=== PATIENT | female | born 1980 | race Hispanic/Latino ===

== ENCOUNTER 2017-01-18 22:08 | Observation (INO) | payer MEDICAID, MEDICARE ==
[2017-01-18 23:29] LABS: BASO # 0.1 K/uL (0.0-0.2); BASO % 0.7 % (0.0-2.0); EOS # 0.2 K/uL (0.0-0.7); EOS % 2.8 % (0.0-4.0); HEMATOCRIT 37.8 % (34.0-47.0); LYMPH # 2.4 K/uL (1.0-4.3); LYMPH % 32.4 % (20.0-40.0); MEAN CELL VOLUME 96.3 fL (81.0-99.0); MEAN CORPUSCULAR HEMOGLOBIN 33.3 pg (27.0-31.0); MEAN CORPUSCULAR HGB CONC 34.6 g/dL (33.0-37.0); MEAN PLATELET VOLUME 7.9 fL (7.2-11.7); MONO # 0.5 K/uL (0.0-0.8); MONO % 6.8 % (0.0-10.0); NRBC % 0.2 % (0.0-2.0); RED CELL DISTRIBUTION WIDTH 12.1 % (11.5-14.5); WHITE BLOOD COUNT 7.3 K/uL (4.8-10.8)
[2017-01-18 23:37] LABS: CHLORIDE 103 mmol/L (98-107); POTASSIUM 3.4 mmol/L (3.6-5.2); SODIUM 140 mmol/L (132-148)
[2017-01-18 23:39] LABS: AST/SGOT 19 U/L (14-36); BILIRUBIN,TOTAL 0.9 mg/dL (0.2-1.3); CARBON DIOXIDE 23 mmol/L (22-30); GFR AFRICAN-AMERICAN > 60
[2017-01-18 23:40] LABS: ALB/GLOB RATIO 1.7 (1.0-2.1); ALKALINE PHOSPHATASE 48 U/L (38-126); ALT/SGPT 45 U/L (9-52); BLOOD UREA NITROGEN 14 mg/dL (7-17); CALCIUM 9.1 mg/dl (8.6-10.4); GLUCOSE,RANDOM 96 mg/dL (65-105); TOTAL PROTEIN 6.9 g/dL (6.3-8.3)
[2017-01-18 23:41] LABS: ALCOHOL SERUM < 10 mg/dl (0-10)
--- NOTE | 2017-01-19 00:14 | C.PDOC ---
Time Seen by Provider: 01/18/17 22:37 Chief Complaint (Nursing): Psychiatric Evaluation History Per: Patient, EMS History/Exam Limitations: clinical condition Onset/Duration Of Symptoms: Unknown Current Symptoms Are (Timing): Still Present Severity: Severe Associated Symptoms: Agitation, Paranoia, Other (Psychosis) Additional History Per: Prior Records Past Medical History Reviewed: Historical Data, Nursing Documentation, Vital Signs Vital Signs: Last Vital Signs Temp 98.5 F 01/18/17 22:10 Pulse 85 01/18/17 22:10 Resp 18 01/18/17 22:10 BP 135/85 01/18/17 22:10 Pulse Ox 97 01/19/17 00:15 - Medical History PMH: Schizophrenia (?) Family History: States: Unknown Family Hx - Social History Hx Alcohol Use: No Hx Substance Use: No - Immunization History Hx Tetanus Toxoid Vaccination: No Hx Influenza Vaccination: No Hx Pneumococcal Vaccination: No Review Of Systems Review Of Systems: ROS cannot be obtained secondary to pt's inabilty to answer questions. Physical Exam - Physical Exam Appears: Unkempt, Agitated Skin: Normal Color, Warm, Dry, No Rash Head: Atraumatic, Normacephalic Eye(s): bilateral: PERRL, EOMI Neck: Normal ROM, Supple Cardiovascular: Rhythm Regular Respiratory: Normal Breath Sounds, No Accessory Muscle Use Gastrointestinal/Abdominal: Soft, No Tenderness Extremity: Normal ROM Neurological/Psych: Inappropriate Response To Command, Other (Moving all extremities) ED Course And Treatment - Laboratory Results Result Diagrams: 01/18/17 23:24 01/18/17 23:24 O2 Sat by Pulse Oximetry: 97 Pulse Ox Interpretation: Normal - Radiology CXR: Interpreted by Me, Viewed By Me CXR Interpretation: Yes: No Acute Disease Progress Note: Pt had to be sedated because she became very agitates and posed a risk of harm to herself and the staff. 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
[2017-01-19 04:02] LABS: URINE BILIRUBIN NEGATIVE (NEGATIVE); URINE BLOOD NEGATIVE (NEGATIVE); URINE COLOR Yellow (YELLOW); URINE GLUCOSE (UA) NORMAL (Normal); URINE KETONE 1+ mg/dL (NEGATIVE); URINE LEUKOCYTE ESTERASE NEG Leu/uL (Negative); URINE PROTEIN NEGATIVE (NEGATIVE); WBC URINE 2 /hpf (0-5)
--- NOTE | 2017-01-19 07:44 | RAD ---
PROCEDURE: CHEST RADIOGRAPH, 1 VIEW HISTORY: Detox/Psy COMPARISON: None available. FINDINGS: LUNGS: No focal infiltrate or effusion. Bibasilar breast or nipple shadows. PLEURA: No pneumothorax or pleural fluid seen. CARDIOVASCULAR: Normal. OSSEOUS STRUCTURES: No significant abnormalities. VISUALIZED UPPER ABDOMEN: Normal. OTHER FINDINGS: None. IMPRESSION: No active disease.
--- NOTE | 2017-01-19 09:58 | PCM.PSYCH ---
Initial Psychiatric Evaluation - Initial Psychiatric Evaluation Type of Admission: Voluntary Legal Status: Capacity Chief Complaint (in patient's own words): I want to go home.' History of Present Illness and Precipitating Events: Patient is a 36 years old female who was escorted to the [facility] by police when they found her "wandering on the streets, yelling out loud and talking to herself, incontinent of urine, refusing to answer questions ". As per the ED note, Pt remained agitated/explosive and oppositional/ argumentative. Pt was noted to be very disruptive and made repeated threats to jn several ED nurses. Pt currently reports the following: "I was approved to see if I was okay;" I kind of fell down;" I don't have a home." Pt initially stated she has been in and out of several shelters over the past 10yrs. However , when asked if she were homeless, Pt stated: "I'm not homeless." I've been observing something stupid;" Just the waiting time." The paper work;" I'm in shock;" A letter that kind of documents I'm staying in the [place]" When Undersigned asked Pt for clarification, Pt stated: "Are you buying me a house;" Then don't ask me these questions"; Pt admits to having a hx of "depression" along with "quite a few" related psychiatric admissions. However, Pt stated she was admitted "for reasons that were totally ridiculous;" I need a promotions executive next to me to answer these questions." Pt also reports a recent hx of suicide idx, but denied hx of suicide attempts and denied any current suicide/homicide idx. Pt reports having family in the [place] but she did not know their whereabouts. Patient remained disorganized and internally preoccupied throughout the evaluation. She appeared disheveled and unkempt. She refused to answer any question and demanded to leave. Current Medications: Active Medications Generic Name Dose Route Start Last Admin Trade Name Freq PRN Reason Stop Dose Admin Benztropine Mesylate 2 mg 01/19/17 09:56 Cogentin PO Q6 PRN Extra Pyramidal Symptoms Diphenhydramine HCl 50 mg 01/19/17 09:56 Benadryl PO Q6 PRN Agitation Haloperidol 5 mg 01/19/17 09:56 Haldol PO Q8 PRN Moderate Agitation Haloperidol Lactate 5 mg 01/19/17 09:56 Haldol IM Q8 PRN Moderate Agitation Lorazepam 1 mg 01/19/17 09:56 Ativan PO Q6 PRN Anxiety Past Psychiatric History - Past Psychiatric History Previous Treatment History: Inpatient Pertinent Medical Hx (Current Medical&Sleep Prob, Allergies): Allergies Allergy/AdvReac Type Severity Reaction Status Date / Time Penicillins Allergy RASH Verified 12/10/16 21:32 Unobtainable 01/19/17 Review of Systems - Review of Systems All systems: reviewed and no additional remarkable complaints except - Psychiatric Psychiatric: Anxiety, Auditory Hallucinations, Irritability, Paranoia, Visual Hallucinations Mental Status Examination - Personal Presentation Personal Presentation: Looks stated age - Affect Affect: Broad - Motor Activity Motor Activity: Psychomotor Agitation - Reliability in Providing Information Reliability in Providing Information: Poor, due to alteration in thoughts, Poor , due to altered mood - Speech Speech: Disorganized - Mood Mood: Anxious - Formal Thought Process Formal Thought Process: Hallucinations, Delusions, Paranoia, Loosening of associations - Hallucinations/Delusions Hallucinations: Visual, Auditory Delusions: Persecution - Obsessions/Compulsions Obsessions: No Compulsions: No - Cognitive Functions Orientation: Person, Place, Situation, Time Sensorium: Alert Attention/Concentration: Attentive Abstract Thinking: [place] Estimate of Intelligence: Below average Judgement: Imparied, as evidence by: Poor judgement, Imparied, as evidence by: Lack of insight into illness - Risk Risk: Diminished functioning - Limitations Limitations: Living alone DSM 5 DX - DSM 5 DSM 5 Diagnosis: Schizophrenia paranoid type continuous - Recommended/Plan of Treatment Treatment Recommendations and Plan of Treatment: Schizophrenia paranoid type continuous CBT Psychoeducation Supportive therapy, group therapy, individual therapy Haldol 5 mg by mouth every 6 hours when necessary Ativan 1 mg by mouth every 6 hours when necessary Risperdal 1 mg by mouth twice a day Cogentin 1 mg by mouth twice a day Klonopin 1 mg by mouth twice a day Trazodone 50 mg by mouth daily at bedtime Patient [place] [facility] [place] - Smoking Cessation Smoking Cessation Initiated: No
[2017-01-19 23:31] VITALS: BP 95/62; PULSE 75; RESP 18; TEMP 98; O2SAT 98
--- NOTE | 2017-01-20 01:36 | CARD ---
APPROVED REPORT EKG Measurement Heart [id number] <Conclusion> Normal sinus rhythm Low voltage QRS Borderline ECG
== END 2017-01-19 19:45 | disposition home or self-care (01) ==
LOC: SUPCPDRO 22:08 → C.ER 22:08 → C.9OBSV 01-19 19:45
PROVIDERS: ADMIT Emergency Medicine; ATTEND Emergency Medicine
DX: F20.0 Paranoid schizophrenia (principal); R45.1 Restlessness and agitation; Z88.0 Allergy status to penicillin
CPT/HCPCS: 71010; 80053; 81001; 84703; 85025; 93005; 96372; 99285; G0378; G0480; J1630; J2060